=== PATIENT | male | born 1975 | race Caucasian/White ===

== ENCOUNTER 2023-02-03 19:12 | Emergency (ER) | payer OTHER, BC ==
[~2023-02-03] VITALS: Ht 180.3 cm; Wt 113.4 kg
[2023-02-03 21:22] VITALS: BP 133/72
[2023-02-05 16:04] LABS: HEPATITIS C AB CIA INTERP Negative (Negative); HEPATITIS C ANTIBODY CIA INDEX <0.02 IV (())
[2023-02-05 16:30] LABS: HEPATITIS BE ANTIGEN Negative (Negative)
[2023-02-05 16:41] LABS: HEPATITIS BE ANTIBODY Negative (Negative)
[2023-02-05 16:51] LABS: HIV 1,2 COMBO ANTIGEN/ANTIBODY Negative (Negative)
== END 2023-02-03 21:23 | disposition home or self-care (01) ==
LOC: ED 19:12
PROVIDERS: Internal Medicine
DX: Z77.21 Contact with and (suspected) exposure to potentially hazardous body fluids (principal)
CPT/HCPCS: 36415; 84460; 86707; 86803; 87350; 99283